=== PATIENT | male | born 1970 | race African-American/Black ===

== ENCOUNTER 2020-07-15 09:50 | Inpatient (IN) | payer SELFPAY ==
[~2020-07-15] VITALS: Ht 175.3 cm; Wt 81.6 kg
[2020-07-15 10:22] LABS: BASO % 1 % (0-3); EOS % 0 % (0-3); HEMATOCRIT 41.9 % (39.0-53.0); HEMOGLOBIN 14.2 g/dL (13.0-17.5); LYMPH # 2.2 x10^3/uL (1.0-4.8); LYMPH % 30 % (24-48); MEAN CORPUSCULAR HEMOGLOBIN 31 pg (25-35); MEAN CORPUSCULAR HGB CONC 34 g/dL (31-37); MEAN CORPUSCULAR VOLUME 90 fL (79-100); MONO # 0.8 x10^3/uL (0.0-1.1); MONO % 11 % (0-9); NEUT # 4.3 x10^3/uL (1.8-7.7); NEUT % 58 % (31-73); PLATELET COUNT 196 x10^3/uL (140-400); RED BLOOD COUNT 4.63 x10^6/uL (4.30-5.70); RED CELL DISTRIBUTION WIDTH 14.6 % (11.5-14.5); WHITE BLOOD COUNT 7.5 x10^3/uL (4.0-11.0)
[2020-07-15 10:31] LABS: BARBITURATES NEG (NEG); BENZODIAZEPINES NEG (NEG); CANNABINOIDS NEG (NEG); COCAINE NEG (NEG); METHADONE NEG (NEG); OPIATES NEG (NEG); PHENCYCLIDINE NEG (NEG)
[2020-07-15 10:34] LABS: AMPHETAMINE/METHAMPHETAMINE NEG (NEG)
[2020-07-15 10:42] LABS: BILIRUBIN,URINE NEGATIVE (NEG); CLARITY,URINE CLEAR; COLOR,URINE YELLOW; NITRITE,URINE NEGATIVE (NEG); PROTEIN,URINE NEGATIVE (NEG-TRACE); UROBILINOGEN,URINE 0.2 mg/dL (0.2 mg/dL)
[2020-07-15 10:43] LABS: BACTERIA,URINE 0 /HPF (0-FEW); RBC,URINE 0 /HPF (0-2); WBC,URINE OCC /HPF (0-4)
[2020-07-15 10:45] LABS: GFR 94.9; POTASSIUM 4.8 mmol/L (3.5-5.1)
--- NOTE | 2020-07-15 10:55 | RAD ---
XR CHEST 1V Clinical Indication: Chest pain Comparison: None. Findings: The cardiomediastinal silhouette is normal. Lungs are clear. There is no pneumothorax. No pleural eff usion is appreciated. No acute bone abnormality. IMPRESSION: No acute cardiopulmonary process. Electronically signed by: Dani Jules MD (07/15/2020 10:25 AM) [id number]
[2020-07-15 11:00] LABS: ALBUMIN 3.8 g/dL (3.4-5.0); MAGNESIUM 2.1 mg/dL (1.8-2.4); TOTAL BILIRUBIN 0.3 mg/dL (0.2-1.0); TOTAL PROTEIN 7.5 g/dL (6.4-8.2)
[2020-07-15] MEDS ORDERED: ACETAMINOPHEN 325 MG TABLET. PO PRN ×2 (11:15→12:45)
[2020-07-15] MEDS ORDERED: NITROGLYCERIN SUBLINGUAL 0.4 MG BOTTLE OF 25. SL PRN (12:30)
[2020-07-15] MEDS ORDERED: ONDANSETRON PF 4 MG/2 ML VIAL. IVP PRN (12:30)
[2020-07-15] MEDS ORDERED: MAG HYDROX/ALUMINUM HYD/SIMETH 30 ML ORAL.SUSP PO PRN (12:30)
[2020-07-15] MEDS ORDERED: ZOLPIDEM 5 MG TABLET. PO PRN (12:30)
[2020-07-15] MEDS ORDERED: 0.9 % SODIUM CHLORIDE 10 ML DISP.SYRIN. IV PRN (12:30)
[2020-07-15] MEDS ORDERED: MORPHINE SULFATE 2 MG/ML VIAL. IV PRN (12:30)
[2020-07-15] MEDS ORDERED: DOCUSATE SODIUM 100 MG CAPSULE. PO PRN (12:30)
[2020-07-15] MEDS ORDERED: ONDANSETRON PF 4 MG/2 ML VIAL. IV PRN (12:45)
--- NOTE | 2020-07-15 14:42 | EKG ---
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
--- NOTE | 2020-07-15 14:43 | EKG ---
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
--- NOTE | 2020-07-15 15:17 | PHYS DOC ---
Past Medical History Past Medical History: No Pertinent History Past Surgical History: No Surgical History Smoking Status: Never Smoker Alcohol Use: Heavy Additional Information: reports drinking 12 pack of beer daily Drug Use: None General Adult EDM: Chief Complaint: CHEST PAIN HPI: HPI: 50 yo M PMH alcohol abuse (12 beers/day) presents to the ED with complaints of left-sided upper chest pain described as hard and heavy, nonradiating for the past 2 days with associated shortness of breath. Reports pain is lasting for a few minutes, is coming and going. Has no active pain currently. Takes no routine medications, has no primary care physician for preventative care. No known history of Covid in the past year. Denies any family history of cardiac disease including ACS, arrhythmia, sudden under the age of 50, connective tissue disorder, aortic aneurysm or dissections, or coagulopathy with DVT or PEs. Patient denies any methamphetamine or cocaine abuse. Review of Systems: Review of Systems: Constitutional: Denies fever or chills. [] Eyes: Denies change in visual acuity. [] HENT: Denies nasal congestion or sore throat. [] Respiratory: Denies cough or hemoptysis Cardiovascular: Denies syncope or edema GI: Denies abdominal pain, nausea, vomiting, bloody stools or diarrhea. [] : Denies dysuria. [] Musculoskeletal: Denies back pain or joint pain or unilateral leg swelling Integument: Denies rash. [] Neurologic: Denies headache, focal weakness or sensory changes. [] Endocrine: Denies polyuria or polydipsia. [] Lymphatic: Denies swollen glands. [] Psychiatric: Denies depression or anxiety. [] Heart Score: HEART Score for Chest Pain: HEART Score for Chest Pain Response (Comments) Value History Moderately Suspicious 1 ECG Nonspecific Repolarizatio 1 Age >45 - < 65 1 Risk Factors No Risk Factors 0 Troponin < Normal Limit 0 Total 3 Risk Factors: Risk Factors: DM, Current or recent (<one month) smoker, HTN, HLP, family his tory of CAD, obesity. Risk Scores: Score 0 - 3: 2.5% MACE over next 6 weeks - Discharge Home Score 4 - 6: 20.3% MACE over next 6 weeks - Admit for Clinical Observation Score 7 - 10: 72.7% MACE over next 6 weeks - Early Invasive Strategies Current Medications: Current Medications Medications (Trade) Dose Ordered Sig/Trevon Start Time Stop Time Status Last Admin Dose Admin Acetaminophen (Tylenol) 650 mg PRN Q4HRS PRN 07/15/20 11:15 07/15/20 12:31 DC Allergies: Allergies: Allergies Coded Allergies Type Severity Reaction Last Updated Verified No Known Drug Allergies 07/15/20 No Physical Exam: PE: Constitutional: Well developed, well nourished, no acute distress, non-toxic appearance. HENT: Normocephalic, atraumatic, Eyes: EOMI, conjunctiva normal, no discharge. Neck: Normal range of motion, supple, Cardiovascular: S1/2 present, regular rhythm, no chest wall tenderness to palpation Lungs & Thorax: Speaking in full sentences, bilateral equal chest rise, no tachypnea or increased work of breathing Abdomen: soft, no tenderness, Skin: Warm, dry, no erythema, no rash. [] Back: No tenderness, no CVA tenderness. [] Extremities: No tenderness, no cyanosis, no edema Neurologic: Alert and oriented X 3, normal motor function, normal sensory function, no focal deficits noted. [] Psychologic: Affect normal, judgement normal, mood normal. [] Current Patient Data: Labs: Laboratory Tests Test 07/15/20 10:01 07/15/20 11:47 07/15/20 13:55 White Blood Count 7.5 x10^3/uL (4.0-11.0) Red Blood Count 4.63 x10^6/uL (4.30-5.70) Hemoglobin 14.2 g/dL (13.0-17.5) Hematocrit 41.9 % (39.0-53.0) Mean Corpuscular Volume 90 fL (79-100) Mean Corpuscular Hemoglobin 31 pg (25-35) Mean Corpuscular Hemoglobin Concent 34 g/dL (31-37) Red Cell Distribution Width 14.6 % (11.5-14.5) H Platelet Count 196 x10^3/uL (140-400) Neutrophils (%) (Auto) 58 % (31-73) Lymphocytes (%) (Auto) 30 % (24-48) Monocytes (%) (Auto) 11 % (0-9) H Eosinophils (%) (Auto) 0 % (0-3) Basophils (%) (Auto) 1 % (0-3) Neutrophils # (Auto) 4.3 x10^3/uL (1.8-7.7) Lymphocytes # (Auto) 2.2 x10^3/uL (1.0-4.8) Monocytes # (Auto) 0.8 x10^3/uL (0.0-1.1) Eosinophils # (Auto) 0.0 x10^3/uL (0.0-0.7) Basophils # (Auto) 0.0 x10^3/uL (0.0-0.2) Urine Collection Type Unknown Urine Color Yellow Urine Clarity Clear Urine pH 6.0 (<5.0-8.0) Urine Specific [place] 1.025 (1.000-1.030) Urine Protein Negative mg/dL (NEG-TRACE) Urine Glucose (UA) Negative mg/dL (NEG) Urine Ketones (Stick) Negative mg/dL (NEG) Urine Blood Negative (NEG) Urine Nitrite Negative (NEG) Urine Bilirubin Negative (NEG) Urine Urobilinogen Dipstick 0.2 mg/dL (0.2 mg/dL) Urine Leukocyte Esterase Negative (NEG) Urine RBC 0 /HPF (0-2) Urine WBC Occ /HPF (0-4) Urine Squamous Epithelial Cells Occ /LPF Urine Bacteria 0 /HPF (0-FEW) Sodium Level 139 mmol/L (136-145) Potassium Level 4.8 mmol/L (3.5-5.1) Chloride Level 102 mmol/L (98-107) Carbon Dioxide Level 25 mmol/L (21-32) Anion Gap 12 (6-14) Blood Urea Nitrogen 25 mg/dL (8-26) Creatinine 1.0 mg/dL (0.7-1.3) Estimated GFR (Cockcroft-Gault) 94.9 BUN/Creatinine Ratio 25 (6-20) H Glucose Level 85 mg/dL (70-99) Calcium Level 9.0 mg/dL (8.5-10.1) Magnesium Level 2.1 mg/dL (1.8-2.4) Total Bilirubin 0.3 mg/dL (0.2-1.0) Aspartate Amino Transferase (AST) 40 U/L (15-37) H Alanine Aminotransferase (ALT) 37 U/L (16-63) Alkaline Phosphatase 65 U/L (46-116) Troponin I Quantitative < 0.017 ng/mL (0.000-0.055) < 0.017 ng/mL (0.000-0.055) IV-Ajf-E-Type Natriuretic Peptide 9 pg/mL (0-124) Total Protein 7.5 g/dL (6.4-8.2) Albumin 3.8 g/dL (3.4-5.0) Albumin/Globulin Ratio 1.0 (1.0-1.7) Lipase 102 U/L (73-393) Urine Opiates Screen Neg (NEG) Urine Methadone Screen Neg (NEG) Urine Barbiturates Neg (NEG) Urine Phencyclidine Screen Neg (NEG) Urine Amphetamine/Methamphetamine Neg (NEG) Urine Benzodiazepines Screen Neg (NEG) Urine Cocaine Screen Neg (NEG) Urine Cannabinoids Screen Neg (NEG) Urine Ethyl Alcohol Pos (NEG) Ethyl Alcohol Level < 10 mg/dL (0-10) Laboratory Tests 07/15/20 10:01 Laboratory Tests 07/15/20 10:01 Vital Signs: Vital Signs Date Time Temp Pulse Resp B/P (MAP) Pulse Ox O2 Delivery O2 Flow Rate FiO2 07/15/20 11:25 76 16 137/70 (92) 94 Room Air 07/15/20 09:55 99.5 99.5 EKG: EK sinus rhythm at 66 bpm, left axis deviation, normal intervals, T wave inversion lead III, ST segment elevations V2, V3, V4 V5 and V6, possible ST segment elevation in aVL, no reciprocal changes or ST depressions, incomplete right bundle branch block, patient denies any active chest pain 0957 sinus rhythm at 67 bpm, left axis deviation, T wave inversion lead III, normal intervals, concern for ST segment elevation V2 and V3, no ST segment depressions, incomplete right bundle branch block, no active chest pain I reviewed both initial ekgs with cardiology, Dr. 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 PHYSICIAN: JAKOB PHELAN DO REASON: cp PROCEDURE: PORTABLE CHEST 1V XR CHEST 1V Clinical Indication: Chest pain Comparison: None. Findings: The cardiomediastinal silhouette is normal. Lungs are clear. There is no pneumothorax. No pleural effusion is appreciated. No acute bone abnormality. IMPRESSION: No acute cardiopulmonary process. Electronically signed by: Dani Jules MD (07/15/2020 10:25 AM) [id number] DICTATED and SIGNED BY: DANI JULES MD DATE: 07/15/20 [id number] 0 Course & Med Decision Making: Course & Med Decision Making Pertinent Labs and Imaging studies reviewed. (See chart for details) Concern for atypical chest pain, ekg with ischemia in the setting of alcohol intoxication. Spoke to cardiology regarding patient's EKGs. Will admit for further medical management and cardiology consultation. Patient stable to admission and agrees with this plan. I have spoken with the patient and/or caregivers. I have explained the patient's condition, diagnosis and treatment plan based on the information available to me at this time. I have answered the patient's and/or caregivers questions and answered any concerns. The patient and/or caregivers have as good an understanding of the patient's diagnosis, condition and treatment plan as can be expected at this point. The patient has been stabilized within the capability of the emergency department. The patient will be transported for further care and management or will be moved to an observation or inpatient service. I have communicated with the staff or medical practitioner taking over this patient's care. Alyson Disclaimer: Alyson Disclaimer: This electronic medical record was generated, in whole or in part, using a voice recognition dictation system. Departure Departure Impression: Primary Impression: Chest pain Additional Impressions: Alcohol intoxication T wave inversion in EKG Disposition: ADMITTED INPT THIS HOSP Admitting Physician: ANN (Dr. Lemon) Condition: STABLE Referrals: NO PCP (PCP) JAKOB PHELAN DO Jul 15, 2020 15:16
--- NOTE | 2020-07-15 16:31 | PDOC1 ---
History and Physical Date of Admission Date of Admission 07/15/2020 Identification/Chief Complaint Chief Complaint My chest hurts Source Source: Chart review, Patient History of Present Illness History of Present Illness 50-year-old gentleman with past medical history of alcohol abuse who drinks approximately 2 sixpacks of beer a day and supplements every so often with alcohol who was in his usual state of health until this morning when he was at work. 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 The patient denies any trauma no recent exercise No cough sputum production no pleurisy. Patient denies aggravating factors, does not give history compatible with GERD. The patient denies chest pain palpitations or shortness of breath on a regular basis associated with exertion. He describes the discomfort as a cramp 8 out of 10 intensity on the worst moments with no radiation to the arm or the jaw no diaphoresis associated with the above-mentioned chest discomfort no sensation of impending doom. No alleviating or aggravating factors were reported by the patient Patient will be admitted at the request the ER for evaluation and chest pain rule out. All concerns were the best of my abilities Past Medical History Past Medical History Reviewed and found negative none significant Past Surgical History Past Surgical History: No pertinent history Family History Family History: No Significant Social History Smoke: No ALCOHOL: heavy Current Problem List Problem List Problems Medical Problems: (1) Alcohol intoxication Status: Acute (2) T wave inversion in EKG Status: Acute Current Medications Current Medications Current Medications Medications (Trade) Dose Ordered Sig/Trevon Start Time Stop Time Status Last Admin Dose Admin Acetaminophen (Tylenol) 650 mg PRN Q4HRS PRN 07/15/20 12:45 07/16/20 12:44 Al Hydroxide/Mg Hydroxide (Mylanta Plus Xs) 30 ml PRN Q2HR PRN 07/15/20 12:30 Atorvastatin Calcium (Lipitor) 40 mg QHS 07/15/20 21:00 Docusate Sodium (Colace) 100 mg PRN DAILY PRN 07/15/20 12:30 Morphine Sulfate (Morphine Sulfate) 2 mg PRN Q2HR PRN 07/15/20 12:30 Nitroglycerin (Nitrostat) 0.4 mg PRN Q5MIN PRN 07/15/20 12:30 Ondansetron HCl (Zofran) 4 mg PRN Q8HRS PRN 07/15/20 12:45 07/16/20 12:44 Sodium Chloride (Normal Saline Flush) 3 ml QSHIFT PRN 07/15/20 12:30 Zolpidem Tartrate (Ambien) 5 mg PRN QHS PRN 07/15/20 12:30 Allergies Allergies Allergies Coded Allergies Type Severity Reaction Last Updated Verified No Known Drug Allergies 07/15/20 No ROS Review of System CONSTITUTIONAL: No fever or chills EYES: No recent changes SKIN: No rash or itching CARDIOVASCULAR: No chest pain, syncope, palpitations, or edema RESPIRATORY: No SOB or cough GASTROINTESTINAL: No nausea, vomiting or abdominal pain NEUROLOGICAL: No headaches or weakness ENDOCRINE: No cold or heat intolerance GENITOURINARY: No urgency or frequency of urination MUSCULOSKELETAL: No back pain or joint pain LYMPHATICS: No enlarged lymph nodes PSYCHIATRIC: No anxiety or depression Physical Exam Physical Exam GEN.: No apparent distress. Alert and oriented. HEENT: Head is normocephalic, atraumatic NECK: Supple. LUNGS: Clear to auscultation. HEART: RRR, S1, S2 present. Peripheral pulses intact ABDOMEN: Soft, nontender. Positive bowel sounds. EXTREMITIES: Without any cyanosis. NEUROLOGIC: Normal speech, normal tone PSYCHIATRIC: Normal affect, normal mood. SKIN: No ulcerations Vitals Vitals Vital Signs Date Time Temp Pulse Resp B/P (MAP) Pulse Ox O2 Delivery O2 Flow Rate FiO2 07/15/20 14:55 66 16 116/61 (79) 94 Room Air 07/15/20 09:55 99.5 99.5 Labs Labs Laboratory Tests Test 07/15/20 10:01 07/15/20 11:47 07/15/20 13:55 White Blood Count 7.5 x10^3/uL (4.0-11.0) Red Blood Count 4.63 x10^6/uL (4.30-5.70) Hemoglobin 14.2 g/dL (13.0-17.5) Hematocrit 41.9 % (39.0-53.0) Mean Corpuscular Volume 90 fL (79-100) Mean Corpuscular Hemoglobin 31 pg (25-35) Mean Corpuscular Hemoglobin Concent 34 g/dL (31-37) Red Cell Distribution Width 14.6 % (11.5-14.5) Platelet Count 196 x10^3/uL (140-400) Neutrophils (%) (Auto) 58 % (31-73) Lymphocytes (%) (Auto) 30 % (24-48) Monocytes (%) (Auto) 11 % (0-9) Eosinophils (%) (Auto) 0 % (0-3) Basophils (%) (Auto) 1 % (0-3) Neutrophils # (Auto) 4.3 x10^3/uL (1.8-7.7) Lymphocytes # (Auto) 2.2 x10^3/uL (1.0-4.8) Monocytes # (Auto) 0.8 x10^3/uL (0.0-1.1) Eosinophils # (Auto) 0.0 x10^3/uL (0.0-0.7) Basophils # (Auto) 0.0 x10^3/uL (0.0-0.2) Urine Collection Type Unknown Urine Color Yellow Urine Clarity Clear Urine pH 6.0 (<5.0-8.0) Urine Specific [place] 1.025 (1.000-1.030) Urine Protein Negative mg/dL (NEG-TRACE) Urine Glucose (UA) Negative mg/dL (NEG) Urine Ketones (Stick) Negative mg/dL (NEG) Urine Blood Negative (NEG) Urine Nitrite Negative (NEG) Urine Bilirubin Negative (NEG) Urine Urobilinogen Dipstick 0.2 mg/dL (0.2 mg/dL) Urine Leukocyte Esterase Negative (NEG) Urine RBC 0 /HPF (0-2) Urine WBC Occ /HPF (0-4) Urine Squamous Epithelial Cells Occ /LPF Urine Bacteria 0 /HPF (0-FEW) Sodium Level 139 mmol/L (136-145) Potassium Level 4.8 mmol/L (3.5-5.1) Chloride Level 102 mmol/L (98-107) Carbon Dioxide Level 25 mmol/L (21-32) Anion Gap 12 (6-14) Blood Urea Nitrogen 25 mg/dL (8-26) Creatinine 1.0 mg/dL (0.7-1.3) Estimated GFR (Cockcroft-Gault) 94.9 BUN/Creatinine Ratio 25 (6-20) Glucose Level 85 mg/dL (70-99) Calcium Level 9.0 mg/dL (8.5-10.1) Magnesium Level 2.1 mg/dL (1.8-2.4) Total Bilirubin 0.3 mg/dL (0.2-1.0) Aspartate Amino Transf (AST/SGOT) 40 U/L (15-37) Alanine Aminotransferase (ALT/SGPT) 37 U/L (16-63) Alkaline Phosphatase 65 U/L (46-116) Troponin I Quantitative < 0.017 ng/mL (0.000-0.055) < 0.017 ng/mL (0.000-0.055) BP-Eod-F-Type Natriuretic Peptide 9 pg/mL (0-124) Total Protein 7.5 g/dL (6.4-8.2) Albumin 3.8 g/dL (3.4-5.0) Albumin/Globulin Ratio 1.0 (1.0-1.7) Lipase 102 U/L (73-393) Urine Opiates Screen Neg (NEG) Urine Methadone Screen Neg (NEG) Urine Barbiturates Neg (NEG) Urine Phencyclidine Screen Neg (NEG) Urine Amphetamine/Methamphetamine Neg (NEG) Urine Benzodiazepines Screen Neg (NEG) Urine Cocaine Screen Neg (NEG) Urine Cannabinoids Screen Neg (NEG) Urine Ethyl Alcohol Pos (NEG) Ethyl Alcohol Level < 10 mg/dL (0-10) Laboratory Tests Test 07/15/20 10:01 07/15/20 11:47 07/15/20 13:55 White Blood Count 7.5 x10^3/uL (4.0-11.0) Red Blood Count 4.63 x10^6/uL (4.30-5.70) Hemoglobin 14.2 g/dL (13.0-17.5) Hematocrit 41.9 % (39.0-53.0) Mean Corpuscular Volume 90 fL (79-100) Mean Corpuscular Hemoglobin 31 pg (25-35) Mean Corpuscular Hemoglobin Concent 34 g/dL (31-37) Red Cell Distribution Width 14.6 % (11.5-14.5) Platelet Count 196 x10^3/uL (140-400) Neutrophils (%) (Auto) 58 % (31-73) Lymphocytes (%) (Auto) 30 % (24-48) Monocytes (%) (Auto) 11 % (0-9) Eosinophils (%) (Auto) 0 % (0-3) Basophils (%) (Auto) 1 % (0-3) Neutrophils # (Auto) 4.3 x10^3/uL (1.8-7.7) Lymphocytes # (Auto) 2.2 x10^3/uL (1.0-4.8) Monocytes # (Auto) 0.8 x10^3/uL (0.0-1.1) Eosinophils # (Auto) 0.0 x10^3/uL (0.0-0.7) Basophils # (Auto) 0.0 x10^3/uL (0.0-0.2) Urine Collection Type Unknown Urine Color Yellow Urine Clarity Clear Urine pH 6.0 (<5.0-8.0) Urine Specific [place] 1.025 (1.000-1.030) Urine Protein Negative mg/dL (NEG-TRACE) Urine Glucose (UA) Negative mg/dL (NEG) Urine Ketones (Stick) Negative mg/dL (NEG) Urine Blood Negative (NEG) Urine Nitrite Negative (NEG) Urine Bilirubin Negative (NEG) Urine Urobilinogen Dipstick 0.2 mg/dL (0.2 mg/dL) Urine Leukocyte Esterase Negative (NEG) Urine RBC 0 /HPF (0-2) Urine WBC Occ /HPF (0-4) Urine Squamous Epithelial Cells Occ /LPF Urine Bacteria 0 /HPF (0-FEW) Sodium Level 139 mmol/L (136-145) Potassium Level 4.8 mmol/L (3.5-5.1) Chloride Level 102 mmol/L (98-107) Carbon Dioxide Level 25 mmol/L (21-32) Anion Gap 12 (6-14) Blood Urea Nitrogen 25 mg/dL (8-26) Creatinine 1.0 mg/dL (0.7-1.3) Estimated GFR (Cockcroft-Gault) 94.9 BUN/Creatinine Ratio 25 (6-20) Glucose Level 85 mg/dL (70-99) Calcium Level 9.0 mg/dL (8.5-10.1) Magnesium Level 2.1 mg/dL (1.8-2.4) Total Bilirubin 0.3 mg/dL (0.2-1.0) Aspartate Amino Transf (AST/SGOT) 40 U/L (15-37) Alanine Aminotransferase (ALT/SGPT) 37 U/L (16-63) Alkaline Phosphatase 65 U/L (46-116) Troponin I Quantitative < 0.017 ng/mL (0.000-0.055) < 0.017 ng/mL (0.000-0.055) NU-Hdd-N-Type Natriuretic Peptide 9 pg/mL (0-124) Total Protein 7.5 g/dL (6.4-8.2) Albumin 3.8 g/dL (3.4-5.0) Albumin/Globulin Ratio 1.0 (1.0-1.7) Lipase 102 U/L (73-393) Urine Opiates Screen Neg (NEG) Urine Methadone Screen Neg (NEG) Urine Barbiturates Neg (NEG) Urine Phencyclidine Screen Neg (NEG) Urine Amphetamine/Methamphetamine Neg (NEG) Urine Benzodiazepines Screen Neg (NEG) Urine Cocaine Screen Neg (NEG) Urine Cannabinoids Screen Neg (NEG) Urine Ethyl Alcohol Pos (NEG) Ethyl Alcohol Level < 10 mg/dL (0-10) VTE Prophylaxis Ordered VTE Prophylaxis Devices: Yes VTE Pharmacological Prophylaxi: Yes Assessment/Plan Assessment/Plan 1. Chest pain rule out ACS 2. Benign hypertension 3 alcohol abuse counseling has been done 4 addictive personality Plan Check 3 sets of cardiac enzymes Regarding the noxious effect of alcohol on his diet to place We will follow results of the troponin trend Request cardiology consultation Further recommendations based on the clinical course Counseling done regarding the noxious effects of alcohol abuse on his health DVT prophylaxis with heparin Justifications for Admission Other Justification GABBY FARRIS MD Jul 15, 2020 16:31
[2020-07-15 19:00] VITALS: BP 102/55
[2020-07-15] MEDS: ACETAMINOPHEN 325 MG TABLET. PO PRN (20:42)
[2020-07-15] MEDS ORDERED: ATORVASTATIN CALCIUM 40 MG TABLET. PO SCH (21:00)
[2020-07-15 23:00] VITALS: BP 93/57
[2020-07-16 03:00] VITALS: BP 91/51
[2020-07-16 07:00] VITALS: BP 118/65
[2020-07-16 11:00] VITALS: BP 115/47
--- NOTE | 2020-07-16 12:26 | NUR ---
SW following for discharge planning. Spoke with RN and reviewed chart. Pt self-pay and [facility] is following. Pt on room air and will likely discharge later today, self-care. Pt still works. PAT Referral to Vianca LANDRUM. Greg from [facility] to meet with pt and provide resources r/t ETOH.
[2020-07-16 14:54] VITALS: BP 102/51
--- NOTE | 2020-07-16 17:07 | PDOC ---
[employer] PROGRESS NOTE Date of Service DOS: DATE: 07/16/20 TIME: 17:00 Chief Complaint Chief Complaint 1. Chest pain rule out ACS 2. Benign hypertension 3 alcohol abuse counseling has been done 4 addictive personality Plan Check 3 sets of cardiac enzymes Regarding the noxious effect of alcohol on his diet to place We will follow results of the troponin trend Request cardiology consultation Further recommendations based on the clinical course Counseling done regarding the noxious effects of alcohol abuse on his health DVT prophylaxis with heparin History of Present Illness History of Present Illness 50-year-old gentleman with past medical history of alcohol abuse who drinks approximately 2 sixpacks of beer a day and supplements every so often with alcohol who was in his usual state of health until this morning when he was at work. 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 The patient denies any trauma no recent exercise No cough sputum production no pleurisy. Patient denies aggravating factors, does not give history compatible with GERD. The patient denies chest pain palpitations or shortness of breath on a regular basis associated with exertion. He describes the discomfort as a cramp 8 out of 10 intensity on the worst moments with no radiation to the arm or the jaw no diaphoresis associated with the above-mentioned chest discomfort no sensation of impending doom. No alleviating or aggravating factors were reported by the patient Patient will be admitted at the request the ER for evaluation and chest pain rule out. All concerns were the best of my abilities. 07/16: Patient seen and evaluated. Still with complaint of intermitted chest discomfort. Troponins <0.017 x 3. Denies family history of CAD, family history MD, or tobacco use. He has no PCP. Discussed with RN, will discharge patient with plan for outpatient stress test. Greater than 30 min was spent managing discharge of this patient. Vitals/I&O Vitals/I&O: Vital Signs Date Time Temp Pulse Resp B/P (MAP) Pulse Ox O2 Delivery O2 Flow Rate FiO2 07/16/20 14:54 98.6 67 19 102/51 (68) 96 Room Air 98.6 I & O 07/15/20 07/15/20 07/16/20 15:00 23:00 07:00 Intake Total 300 ml 120 ml Balance 300 ml 120 ml Physical Exam General: Alert, Cooperative, No acute distress Heart: Regular rate Lungs: Clear Abdomen: Soft, No tenderness Extremities: No clubbing, No cyanosis Skin: No rashes, No breakdown Labs Labs: Laboratory Tests Test 07/15/20 17:41 Troponin I Quantitative < 0.017 ng/mL (0.000-0.055) Assessment and Plan Assessmemt and Plan Problems Medical Problems: (1) Alcohol intoxication Status: Acute (2) T wave inversion in EKG Status: Acute Comment Review of Relevant I have reviewed the following items osmar (where applicable) has been applied. Medications: Current Medications Medications (Trade) Dose Ordered Sig/Trevon Route PRN Reason Start Time Stop Time Status Last Admin Dose Admin Atorvastatin Calcium (Lipitor) 40 mg QHS PO 07/15/20 21:00 07/15/20 20:38 Justifications for Admission Other Justification SYED COUHC MD Jul 16, 2020 17:07
[2020-07-16] MEDS: ACETAMINOPHEN 325 MG TABLET. PO PRN (17:08)
--- NOTE | 2020-07-16 17:16 | PDOC3 ---
Discharge Summary Visit Information Date of Admission: Jul 15, 2020 Date of Discharge: Jul 16, 2020 Final Diagnosis Problems Medical Problems: (1) Alcohol intoxication Status: Acute (2) T wave inversion in EKG Status: Acute Brief Hospital Course Allergies Allergies Coded Allergies Type Severity Reaction Last Updated Verified No Known Drug Allergies 07/15/20 No Vital Signs Vital Signs Date Time Temp Pulse Resp B/P (MAP) Pulse Ox O2 Delivery O2 Flow Rate FiO2 07/16/20 14:54 98.6 67 19 102/51 (68) 96 Room Air 98.6 Lab Results Laboratory Tests Test 07/15/20 10:01 07/15/20 11:47 07/15/20 13:55 07/15/20 17:41 White Blood Count 7.5 x10^3/uL (4.0-11.0) Red Blood Count 4.63 x10^6/uL (4.30-5.70) Hemoglobin 14.2 g/dL (13.0-17.5) Hematocrit 41.9 % (39.0-53.0) Mean Corpuscular Volume 90 fL (79-100) Mean Corpuscular Hemoglobin 31 pg (25-35) Mean Corpuscular Hemoglobin Concent 34 g/dL (31-37) Red Cell Distribution Width 14.6 % (11.5-14.5) Platelet Count 196 x10^3/uL (140-400) Neutrophils (%) (Auto) 58 % (31-73) Lymphocytes (%) (Auto) 30 % (24-48) Monocytes (%) (Auto) 11 % (0-9) Eosinophils (%) (Auto) 0 % (0-3) Basophils (%) (Auto) 1 % (0-3) Neutrophils # (Auto) 4.3 x10^3/uL (1.8-7.7) Lymphocytes # (Auto) 2.2 x10^3/uL (1.0-4.8) Monocytes # (Auto) 0.8 x10^3/uL (0.0-1.1) Eosinophils # (Auto) 0.0 x10^3/uL (0.0-0.7) Basophils # (Auto) 0.0 x10^3/uL (0.0-0.2) Urine Collection Type Unknown Urine Color Yellow Urine Clarity Clear Urine pH 6.0 (<5.0-8.0) Urine Specific [place] 1.025 (1.000-1.030) Urine Protein Negative mg/dL (NEG-TRACE) Urine Glucose (UA) Negative mg/dL (NEG) Urine Ketones (Stick) Negative mg/dL (NEG) Urine Blood Negative (NEG) Urine Nitrite Negative (NEG) Urine Bilirubin Negative (NEG) Urine Urobilinogen Dipstick 0.2 mg/dL (0.2 mg/dL) Urine Leukocyte Esterase Negative (NEG) Urine RBC 0 /HPF (0-2) Urine WBC Occ /HPF (0-4) Urine Squamous Epithelial Cells Occ /LPF Urine Bacteria 0 /HPF (0-FEW) Sodium Level 139 mmol/L (136-145) Potassium Level 4.8 mmol/L (3.5-5.1) Chloride Level 102 mmol/L (98-107) Carbon Dioxide Level 25 mmol/L (21-32) Anion Gap 12 (6-14) Blood Urea Nitrogen 25 mg/dL (8-26) Creatinine 1.0 mg/dL (0.7-1.3) Estimated GFR (Cockcroft-Gault) 94.9 BUN/Creatinine Ratio 25 (6-20) Glucose Level 85 mg/dL (70-99) Plasma/Serum Osmolality 292 mOsmol/kg (275-295) Calcium Level 9.0 mg/dL (8.5-10.1) Magnesium Level 2.1 mg/dL (1.8-2.4) Total Bilirubin 0.3 mg/dL (0.2-1.0) Aspartate Amino Transf (AST/SGOT) 40 U/L (15-37) Alanine Aminotransferase (ALT/SGPT) 37 U/L (16-63) Alkaline Phosphatase 65 U/L (46-116) Troponin I Quantitative < 0.017 ng/mL (0.000-0.055) < 0.017 ng/mL (0.000-0.055) < 0.017 ng/mL (0.000-0.055) GZ-Xbn-H-Type Natriuretic Peptide 9 pg/mL (0-124) Total Protein 7.5 g/dL (6.4-8.2) Albumin 3.8 g/dL (3.4-5.0) Albumin/Globulin Ratio 1.0 (1.0-1.7) Lipase 102 U/L (73-393) Urine Opiates Screen Neg (NEG) Urine Methadone Screen Neg (NEG) Urine Barbiturates Neg (NEG) Urine Phencyclidine Screen Neg (NEG) Urine Amphetamine/Methamphetamine Neg (NEG) Urine Benzodiazepines Screen Neg (NEG) Urine Cocaine Screen Neg (NEG) Urine Cannabinoids Screen Neg (NEG) Urine Ethyl Alcohol Pos (NEG) Ethyl Alcohol Level < 10 mg/dL (0-10) Laboratory Tests Test 07/15/20 17:41 Troponin I Quantitative < 0.017 ng/mL (0.000-0.055) Brief Hospital Course Mr. Salas is a 50 old male who presented with chest pain. Serial troponins trended and <0.017 x 3. Still complaints with intermittent chest discomforts. He does not have a PCP. Discussed with RN and cardiology to help with arrangements for outpatient stress test. Discharge Information Condition at Discharge: Stable Follow Up: Weeks Disposition/Orders: D/C to Home No Active Prescriptions or Reported Meds Justicifation of Admission Dx: Justifications for Admission: Justification of Admission Dx: Yes (chest pain) SYED COUCH MD Jul 16, 2020 17:16
--- NOTE | 2020-07-16 18:45 | NUR ---
Discharge Note: Patient was discharged home with self care. Patients IV was discontinued without any complications per RN. Patient requested to be excused from work or to be put on light duty or on bedrest until Wednesday, patient was told doctor was not in the building and wasn't able to write a note, Dr. Sexton stated he could come in tomorrow and brick picker a note from the doctor. Patient received discharge summary/instructions, follow-ups, and educational material. Patients prescription for Robaxin was called into his preferred pharmacy per Dr. Lemon. Patient decided to ambulate down to the main entrance with all personal belongings accompanied by [facility], where family was waiting for him to take him home.
--- NOTE | 2020-07-17 03:17 | EKG ---
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
== END 2020-07-16 19:00 | disposition home or self-care (01) | DRG 313 ==
LOC: ER 09:50 → ED HOLD 12:28 → 5 NORTH 15:07
PROVIDERS: ADMIT Internal Medicine; ATTEND Internal Medicine
DX: R07.89 Other chest pain (principal); R94.31 Abnormal electrocardiogram [ECG] [EKG]; I10 Essential (primary) hypertension; F10.129 Alcohol abuse with intoxication, unspecified; Z71.41 Alcohol abuse counseling and surveillance of alcoholic
CPT/HCPCS: 36415; 71045; 80053; 80307; 81001; 83690; 83735; 83880; 83930; 84484; 85025; 93005; G0480; J2270; G0378